=== PATIENT | female | born 1935 | race Two or more races ===

== ENCOUNTER 2018-07-12 06:13 | Day surgery (SDC) | payer MEDICARE, OTHER ==
[~2018-07-12] VITALS: Ht 165.1 cm; Wt 65.8 kg
[2018-07-12] VITALS (8 sets, daily range): BP systolic 126–159; BP diastolic 55–76
--- NOTE | 2018-07-12 06:05 | Anethesia Preoperative Eval ---
Anesthesia Pre-op PMH/ROS General Date of Evaluation: Jul 12, 2018 Time of Evaluation: 06:04 Anesthesiologist: ximena ASA Score: ASA 4 Mallampati Score Class I : Soft palate, uvula, fauces, pillars visible Class II: Soft palate, uvula, fauces visible Class III: Soft palate, base of uvula visible Class IV: Only hard plate visible Mallampati Classification: Class II Surgeon: gerald Diagnosis: cataract right eye Surgical Procedure: cataract extraction w/iol implant right eye Anesthesia History: none Family History: no anesthesia problems Allergies: Coded Allergies: No Known Allergies (Unverified , 07/12/18) Medications: see eMAR Past Medical History Cardiovascular: Reports: HTN Hematology/Immune: Reports: other - cancer Musculoskeletal/Integumentary: Reports: OA Anesthesia Pre-op Phys. Exam Physician Exam Last Vital Signs Date Time Temp Pulse Resp B/P (MAP) Pulse Ox O2 Delivery O2 Flow Rate FiO2 07/12/18 06:51 97.0 55 18 142/55 (84) 96 97.0 07/12/18 06:47 Room Air Constitutional: NAD Neurologic: CN 2-12 intact Cardiovascular: RRR Respiratory: CTA Gastrointestinal: S/NT/ND Airway Exam Mallampati Score: Class II MO: limited Neck: flexible TMD: 2fb Anesthesia Pre-op A/P Risk Assessment & Plan Assessment: asa4 Plan: mac Status Change Before Surgery: No Pre-Antibiotics Drug: Janett Tolliver MD Jul 12, 2018 06:05
[~2018-07-12 06:13] MED LIST: Akten 3.5% 1ml Btl ONE; Diclofenac Sod 0.1% Op Soln ONE; LR 1000ml 1,000 ML IVLG SCH; Phenylephrine 10% Opth Soln 5ml ONE; Tropicamide 1% Opth 15ml Soln ONE; Vigamox Opth Soln 3ml ONE
[2018-07-12] MEDS ORDERED: Atropine Inj 1mg/10ml Syr IV PRN (06:15)
[2018-07-12] MEDS ORDERED: DiphenhydrAMINE 50mg/ml Inj IVP PRN (06:15)
[2018-07-12] MEDS ORDERED: Midazolam 2mg/2ml Inj IVP PRN (06:15)
[2018-07-12] MEDS ORDERED: fentaNYL 100 mcg/2 mL IV PRN (06:15)
[2018-07-12] MEDS: Phenylephrine 10% Opth Soln 5ml RIGHT EYE SCH ×3 (06:40→06:58)
[2018-07-12] MEDS: Tropicamide 1% Opth 15ml Soln RIGHT EYE SCH ×3 (06:40→06:58)
[2018-07-12] MEDS: Vigamox Opth Soln 3ml RIGHT EYE SCH ×3 (06:40→06:58)
[2018-07-12] MEDS: Akten 3.5% 1ml Btl RIGHT EYE SCH ×3 (06:41→06:58)
[2018-07-12] MEDS: Diclofenac Sod 0.1% Op Soln RIGHT EYE SCH ×3 (06:41→06:58)
[2018-07-12] MEDS ORDERED: ASPIR 8181 MG ORAL (06:57)
[2018-07-12] MEDS ORDERED: DIOVAN320 MG ORAL (06:57)
[2018-07-12] MEDS ORDERED: ATORVASTATIN CA20 MG ORAL (06:57)
[2018-07-12] MEDS ORDERED: fentaNYL 100 mcg/2 mL IV ONE (07:00)
[2018-07-12] MEDS ORDERED: Sterile Water Irrig 1000ml IRRIG ONE (07:00)
[2018-07-12] MEDS ORDERED: LR 1000ml ONE (07:00)
[2018-07-12] MEDS ORDERED: NS Irrig 1000ml ONE (07:00)
[2018-07-12] MEDS ORDERED: EPINEPHrine 1mg/1ml Amp ONE (07:02)
[2018-07-12] MEDS ORDERED: Povidone-Iodine 5% opth solution ONE (07:03)
[2018-07-12] MEDS ORDERED: BSS 15ml BTL ONE (07:03)
[2018-07-12] MEDS ORDERED: BSS 500ml btl ONE (07:03)
[2018-07-12] MEDS ORDERED: Dexamethasone 4mg/ml vial ONE (07:03)
[2018-07-12] MEDS ORDERED: Carbachol 0.01% Op Soln 1.5ml vial ONE (07:03)
[2018-07-12] MEDS ORDERED: Lidocaine 1% 10mg/ml/Epi 0.005mg/ml 30ml vial INJ ONE (07:04)
[2018-07-12] MEDS ORDERED: Tetracaine 0.5% Opth 4ml Soln ONE (07:04)
[2018-07-12] MEDS ORDERED: Sodium Hyaluronate 10 mg/ml 0.85ml ONE (07:04)
[2018-07-12] MEDS ORDERED: Lidocaine 1% MPF 10mg/ml 5ml ONE (07:06)
[2018-07-12] MEDS ORDERED: acetaZOLAMIDE 125mg tab ORAL ONE (07:30)
--- NOTE | 2018-07-12 08:17 | Discharge Summary ---
Discharge Summary Discharge Summary Discharge Summary DATE OF ADMISSION: 07/12/18 DATE OF DISCHARGE: 07/12/18 REASON FOR HOSPITALIZATION: cataract right eye SURGERY PERFORMED: 1- Cataract extraction 2- LRI CONDITION IN THE HOSPITAL:The patient tolerated the surgery without complications. DISCHARGE CONDITION: The patient was stable at discharge. DISCHARGE MEDICATIONS: 1. Vigamox eye drops one drop q.i.d, OD 2. Prednisolone one drop q.i.d, OD 3. Prolensa 1 drop qd, OD POSTOPERATIVE ORDERS: The patient has to rest at home. No bending, No lifting, No watching Television tonight. POSTOPERATIVE FOLLOW UP: The patient will be followed in my office tomorrow morning at 7 o'clock. Chaparro Hi MD Jul 12, 2018 08:16
--- NOTE | 2018-07-12 08:21 | Brief Operative Note ---
Immediate Post Operative Note Operative Note Chief Complaint: Blurry vision, difficulty driving and reading, right eye Pre-op Diagnosis: 1- Cataract, right eye 2- Astigmatism Procedure: 1- Cataract extraction with phaco and PC IOL implantation, right eye 2- Limbal relaxing incision ( LRI ), right eye Post-op Diagnosis: same as pre-op Surgeon: Chaparro Hi MD Consulting Intern: None Additional Surgeons: None Anesthesiologist: Dr. castellanos Anesthesia: MAC Specimen: none Complications: none Condition: stable Fluids: 300ml Estimated Blood Loss: none Drains: none Implant(s) used?: Yes - Monofocal PC IOL implanted in the right eye without complications Chaparro Hi MD Jul 12, 2018 08:21
--- NOTE | 2018-07-12 08:23 | Immediate Post-Op Evaluation ---
Immediate Post-Op Evalulation Immediate Post-Op Evalulation Procedure: cataract extraction w/iol implant right eye Date of Evaluation: Jul 12, 2018 Time of Evaluation: 08:22 IV Fluids: 100ml lr Blood Products: none Estimated Blood Loss: negligible Blood Pressure Systolic: 156 Blood Pressure Diastolic: 76 Pulse Rate: 58 Respiratory Rate: 18 O2 Sat by Pulse Oximetry: 97 Temperature (Fahrenheit): 97.6 Pain Score (1-10): 0 Nausea: No Vomiting: No Complications none Patient Status: awake, reacts, patent Hydration Status: adequate Drug: Janett Tolliver MD Jul 12, 2018 08:23
--- NOTE | 2018-07-12 08:25 | 48 Hour Post Anesthesia Eval ---
Post Anesthesia Evaluation Procedure: cataract extraction w/iol implant right eye Date of Evaluation: Jul 12, 2018 Time of Evaluation: 08:24 Blood Pressure Systolic: 155 0: 76 Pulse Rate: 59 Respiratory Rate: 18 Temperature (Fahrenheit): 97.6 O2 Sat by Pulse Oximetry: 98 Airway: patent Nausea: No Vomiting: No Pain Intensity: 0 Hydration Status: adequate Cardiopulmonary Status: stable Mental Status/LOC: patient returned to baseline Post-Anesthesia Complications: none Follow-up care needed: N/A Janett Madsen MD Jul 12, 2018 08:25
[2018-07-12] MEDS ORDERED: acetaZOLAMIDE 125mg tab ONE (08:30)
--- NOTE | 2018-07-12 10:56 | Pre-Procedure Note/Attestation ---
Pre-Procedure Note/Attestation Complete Prior to Procedure Planned Procedure: right Procedure Narrative: 1- Cataract extraction with phaco and PC IOl implantation, right eye 2- Limbal relaxing incision ( LRI ), right eye Indications for Procedure Pre-Operative Diagnosis: 1- Cataract, right eye 2- Astigmatism Attestation I attest that I discussed the nature of the procedure; its benefits; risks and complications; and alternatives (and the risks and benefits of such alternatives ), prior to the procedure, with the patient (or the patient's legal contact representative). I attest that, if there was a reasonable possibility of needing a blood transfusion, the patient (or the patient's legal contact representative) was given the [place] Department [employer] standardized written summary, pursuant to the [place] Blood Safety Act ([place] Health and Safety Code # 1645, as amended). I attest that I re-evaluated the patient just prior to the surgery and that there has been no change in the patient's H&P, except as documented below: Chaparro Hi MD Jul 12, 2018 10:56
--- NOTE | 2018-07-12 11:01 | Pre-Procedure Note/Attestation ---
Pre-Procedure Note/Attestation Complete Prior to Procedure Planned Procedure: right Procedure Narrative: 1- catarct extraction with phaco and PC IOL implantation, right eye 2- Limbal relaxing incision ( LRI ). Indications for Procedure Pre-Operative Diagnosis: 1- Cataract, right eye 2- Astigmatism Attestation I attest that I discussed the nature of the procedure; its benefits; risks and complications; and alternatives (and the risks and benefits of such alternatives ), prior to the procedure, with the patient (or the patient's legal route service representative). I attest that, if there was a reasonable possibility of needing a blood transfusion, the patient (or the patient's legal route service representative) was given the [place] Department [employer] Services standardized written summary, pursuant to the [place] Blood Safety Act ([place] Health and Safety Code # 1645, as amended). I attest that I re-evaluated the patient just prior to the surgery and that there has been no change in the patient's H&P, except as documented below: Chaparro Hi MD Jul 12, 2018 11:01
--- NOTE | 2018-07-12 23:45 | Operative Note - Dictated ---
DATE OF OPERATION: 07/12/2018 FACILITY: [facility]. SURGEON: Chaparro Hi M.D. THREADING MACHINE SETTER: None. ANESTHESIOLOGIST: Janett García M.D. ANESTHESIA: Monitored anesthesia care (MAC). PREOPERATIVE DIAGNOSES: 1. Cataract, right eye. 2. Astigmatism on the right eye. PREOPERATIVE DIAGNOSES: 1. Cataract, right eye. 2. Astigmatism on the right eye. SURGERY PERFORMED: 1. Cataract extraction with phacoemulsification and posterior chamber intraocular lens implantation in the right eye. 2. Limbal relaxing incision (LRI), right eye. INDICATION FOR SURGERY: The patient is an 83-year-old lady with history of hypertension, hyperlipidemia, osteoarthritis and hypothyroidism. The patient is taking Lipitor 20 mg 40 tablets, Benicar, aspirin, and amlodipine. She has no allergies to any medications. She is nondrinker and she is not smoker. She is complaining of blurred vision in the right eye. On examination of the right eye, the cornea is clear. Anterior chamber is clean and quiet, but is shallow. Pupillary reflex is normal. There is no RAPD. There is 4+ nuclear sclerosis and 2+ cortical cataract. Funduscopy shows normal optic disc, normal macula, and periphery is flat. To improve her vision in the right eye, the cataract has to be removed and posterior chamber intraocular lens has to be implanted. The patient has astigmatism has to be addressed as well. INFORMED CONSENT: The nature of the surgery, risks, benefits, alternatives and potential complications were all explained in detail to the patient. The potential complications including, but not limited to bleeding, infection, posterior capsular rupture, lens subluxation, flat anterior chamber, iris prolapse, uveitis, corneal edema, macular edema, endophthalmitis, retinal detachment, loss of vision, and even loss of the eye were all explained in detail to the patient. The patient voiced understanding and accepted all the complications. The alternatives including accommodating lenses, multifocal lens, toric lens, and conventional cataract surgery with limbal relaxing incision (LRI) for treatment of astigmatism were all explained in detail to the patient and the patient voiced understanding. The elected to have only conventional cataract surgery plus limbal relaxing incision (LRI) for treatment of astigmatism. Then, she signed the consent form, which is in the chart. DESCRIPTION OF SURGERY AND FINDINGS: Following that the patient was taken to the operation room in a stable condition. Lidocaine gel, Akten 3.5% was applied to the conjunctiva of the right eye. IV sedation was given by the anesthesiologist, Dr. García. After adequate anesthesia and sedation had been achieved, the right eye was prepped and draped in a sterile fashion for intraocular surgery. Following that, a speculum was placed in the right eye. Before the patient was taken to the operation room, the cornea was marked at 180 and 90 meridian. In the operation room, using a corneal marker and marking pen, the steep meridian of the cornea was marked. Following that, using a eliseo knife with 600 micron blade, 2 parallel incisions was placed on the steep meridian of the cornea for treatment of astigmatism. Following that using a Super Sharp knife, a clear corneal side port was created. A 1% lidocaine without preservative (MPF) was injected into the anterior chamber. Viscoelastic agent, Healon was injected into the anterior chamber. Following that, a clear corneal temporal keratotomy was performed using a 2.8 mm keratome. Following that, viscoelastic agent was injected into the anterior chamber again. Following that, an anterior capsulotomy was performed in the fashion of capsulorrhexis under the viscoelastic agent beautifully. Following that, whole viscoelastic agent was removed from the anterior chamber. Following that, using balanced salt solution, hydrodissection and hydrodelineation were performed and the nucleus was freed. Following that, a clear fresh viscoelastic agent, Healon was injected into the anterior chamber to protect the endothelium of the cornea. Following that using phacoemulsification machine in the fashion of horizontal was removed in toto. Following that, a cortical material was removed from the capsular bag using irrigation aspiration unit. Following that, capsular bag was polished and filled with viscoelastic agent, Healon. Following that, a +20.5 diopter, foldable PCIOL with serial number #[id number] was inserted into the capsular bag. Using a Sinskey hook, the lens was manipulated and put in the proper position. Following that, the viscoelastic agent was removed from the anterior and posterior part of the lens and the anterior chamber was filled with balanced salt solution. Following that the wound was hydrated with balanced salt solution and the wound was checked for leakage, there was no leakage. Vigamox eyedrops were applied to the conjunctiva of the right eye. The patient tolerated the surgery without complications. At the end of the surgery, the eye was patched with a clear sterile fenestrated shield. Following that the patient was then transferred to the recovery room. In the recovery room, 125 mg Diamox was given by mouth stat. Postoperative orders and directions were given to the patient. The patient will be discharged home upon stabilization. The patient will be followed in my office tomorrow morning. Chaparro Hi M.D. DR: MORGAN JOB#: [id number] CC:
== END 2018-07-12 09:25 | disposition home or self-care (01) ==
LOC: SUR 06:13
DX: H25.811 Combined forms of age-related cataract, right eye (principal); H52.201 Unspecified astigmatism, right eye; I10 Essential (primary) hypertension; M19.90 Unspecified osteoarthritis, unspecified site; E78.5 Hyperlipidemia, unspecified; E03.9 Hypothyroidism, unspecified; Z85.9 Personal history of malignant neoplasm, unspecified; Z79.82 Long term (current) use of aspirin
CPT/HCPCS: 66984; 66999; 82962; J0171; J1100; J3010; V2632; 94003; 94150